=== PATIENT | female | born 1985 | race Caucasian/White ===

== ENCOUNTER 2017-11-21 00:06 | Inpatient (IN) | payer OTHER ==
[~2017-11-21] VITALS: Ht 162.6 cm; Wt 84.4 kg
[2017-11-21 00:20] VITALS: Ht 162.6 cm; Wt 84.4 kg
[2017-11-21 01:34] LABS: BASOPHIL % 0.1 % (0-2)
[2017-11-21 01:36] LABS: PLATELET COUNT 493 x10^3mcL (130-400); RED CELL DISTRIBUTION WIDTH 17.6 % (11.5-14.5)
[2017-11-21 01:45] LABS: CALCIUM 8.6 mg/dL (8.5-10.1); CARBON DIOXIDE 25.3 mmol/L (21-32); CHLORIDE SERUM 96 mmol/L (98-107); CREATININE SERUM 0.6 mg/dL (0.6-1.0); GFR1 > 60 mL/min; GLUCOSE SERUM 109 mg/dL (74-106); POTASSIUM SERUM 3.9 mmol/L (3.5-5.1); SODIUM SERUM 129 mmol/L (136-145)
[2017-11-21 01:57] LABS: ALBUMIN 3.6 g/dL (3.4-5.0); ALKALINE PHOSPHATASE 94 U/L (46-116); ALT/SGPT 43 U/L (14-59); AST/SGOT 32 U/L (15-37); BILIRUBIN TOTAL 0.2 mg/dL (0.20-1.00)
[2017-11-21 03:03] LABS: AMPHETAMINE QUAL UR NONE DETECTED (NEG <=1000)
[2017-11-21 03:39] LABS: microscopic required? YES; urine erythrocyte NEGATIVE (NEGATIVE)
[2017-11-21] MEDS ORDERED: VENLAFAXINE225 M1 PO (04:27)
[2017-11-21] MEDS ORDERED: TRILEPTAL600 MG PO (04:27)
[2017-11-21] MEDS ORDERED: ABILIFY5 M1 PO (04:27)
[2017-11-21] MEDS ORDERED: ALL DAY ALLERGY10 M2 PO (04:28)
[2017-11-21] MEDS ORDERED: GOOD SENSE OMEP20 MG PO (04:28)
[2017-11-21] MEDS ORDERED: RANITIDINE HYD150 M2 PO (04:28)
[2017-11-21] MEDS ORDERED: NASACORT A55 MCG/Ac1 (04:29)
[2017-11-21] MEDS ORDERED: ASMANEX TW110 MCG/Ac IH (04:30)
[2017-11-21] MEDS ORDERED: DIPHENHYDRAMINE50 MG PO (04:31)
[2017-11-21] MEDS ORDERED: TUMS CH (04:31)
[2017-11-21] MEDS ORDERED: HYDROCHLOROTHIA25 MG PO (04:31)
[2017-11-21] MEDS ORDERED: XOPENEX HF0.045 MG/1 IH (04:31)
[2017-11-21 09:02] VITALS: BP 139/86
[2017-11-21 09:53] VITALS: BP 148/95
[2017-11-21 13:48] VITALS: BP 148/96
[2017-11-21 17:33] VITALS: BP 124/73
[2017-11-21 20:44] VITALS: BP 123/77
[2017-11-22 06:26] VITALS: BP 110/71
[2017-11-22 08:44] VITALS: BP 116/74
[2017-11-22 09:21] LABS: ALT/SGPT 57 U/L (14-59); AST/SGOT 45 U/L (15-37); BILIRUBIN TOTAL 0.14 mg/dL (0.20-1.00)
[2017-11-22 10:32] VITALS: BP 116/74
[2017-11-22 12:40] VITALS: BP 119/81
== END 2017-11-22 13:30 | disposition other institution (70) | DRG 918 ==
LOC: ED 00:06 → DU 04:19
PROVIDERS: Emergency Medicine; Internal Medicine
DX: T39.1X2A Poisoning by 4-Aminophenol derivatives, intentional self-harm, initial encounter (principal); I10 Essential (primary) hypertension; J45.909 Unspecified asthma, uncomplicated; F32.9 Major depressive disorder, single episode, unspecified; Y92.89 Other specified places as the place of occurrence of the external cause
CPT/HCPCS: G0480; J0132; J2550; J7060; Q0163